=== PATIENT | female | born 1960 | race Caucasian/White ===

== ENCOUNTER 2024-07-25 11:50 | Outpatient (CLI) | payer OTHER, SELFPAY ==
[2024-07-25 23:20] LABS: Chlamydia DNA Amplified* NOT DETECTED (No Detected); GC DNA Amplified* NOT DETECTED (No Detected)
[2024-08-01 05:26] LABS: HPV Source Cervix; HPV, High Risk by TMA Not Detected
== END 2024-07-25 11:51 | disposition home or self-care (01) ==
PROVIDERS: PCP Physician Assistant Medical; Visit Provider Physician Assistant Medical
DX: Z00.01 Encounter for general adult medical examination with abnormal findings (principal); I10 Essential (primary) hypertension; E78.5 Hyperlipidemia, unspecified; E03.9 Hypothyroidism, unspecified; Z11.3 Encounter for screening for infections with a predominantly sexual mode of transmission; Z11.51 Encounter for screening for human papillomavirus (HPV); Z12.4 Encounter for screening for malignant neoplasm of cervix
CPT/HCPCS: 80053; 80061; 84443; 87491; 87591; 87624; 87625; 88141; 88142

== ENCOUNTER 2024-12-11 08:50 | Outpatient (CLI) | payer MEDICARE, SELFPAY | END 2024-12-11 08:51 | disposition home or self-care (01) | LOC: NFLDREF 12-13 16:01 | PROVIDERS: PCP Physician Assistant Medical; Referring Provider Physician Assistant Medical; Visit Provider Physician Assistant Medical | DX: E78.5 Hyperlipidemia, unspecified | CPT/HCPCS: 80053; 80061 ==